=== PATIENT | female | born 1925 | race Caucasian/White ===

== ENCOUNTER 2017-06-03 08:03 | Emergency (ER) | payer MEDICARE, BC ==
--- NOTE | 2017-06-03 08:19 | Emergency Department Record ---
History of Present Illness - General Chief Complaint: Abdominal Pain Stated Complaint: ABD PAIN Time Seen by Provider: 06/03/17 08:17 Source: Patient Mode of Arrival: Ambulatory Limitations: No limitations - History of Present Illness Initial Comments: The patient is here due to a 3 day hx of crampy lower AP associated with nausea and vomiting 3 days ago. She has had no vomiting over the last 2 days associated with intermittent loose stools. The patient states she has a hx of Diverticulitis but it usually is not this bad. She has had her GB removed in the past along with a vaginal Hysterectomy. The patient denies any CP, SOB, MARCELO , fever, or dysuria. She state the pain is in the lower abdomen bilaterally and presently it is mild. MD Complaint: Abdominal pain Onset/Timin -: Days(s) Location: Suprapubic, LLQ, RLQ Severity: Moderate Quality: Sharp, Other Consistency: Intermittent - Related Data Previous Rx's Medication Instructions Recorded Amoxicillin/Potassium Clav 1 tab PO BID #14 tab 06/03/17 [Augmentin 875-125 Tablet] Dicyclomine HCl [Bentyl] 10 mg PO BID #15 cap 06/03/17 Allergies Allergy/AdvReac Type Severity Reaction Status Date / Time No Known Drug Allergies Allergy Verified 03/10/16 12:32 Travel Screening - Travel/Exposure Within Last 30 Days Have you traveled within the last 30 days?: No - Travel/Exposure Within Last Year Have you traveled outside the [place] in the last year?: No - Additonal Travel Details Have you been exposed to anyone with a communicable illness?: No - Travel Symptoms Symptom Screening: None Review of Systems Constitutional: Denies: Chills, Fever Eyes: Denies: Eye discharge ENT: Denies: Congestion Respiratory: Denies: Cough, Dyspnea Past Medical History - SOCIAL HISTORY Smoking Status: Never smoker Alcohol Use: None Drug Use: None - RESPIRATORY Hx Respiratory Disorders: No - CARDIOVASCULAR Hx Cardio Disorders: Yes Hx Edema: Yes (left ankle slight now) Hx Hypertension: Yes (good control) - NEURO Hx Neuro Disorders: Yes Hx Headaches: Yes (seldom migraines) Hx of Migraines: Yes Hx Neuropathy: Yes (feet) Hx Weakness: Yes (right knee sometimes) - GI Hx GI Disorders: Yes Hx Reflux: Yes (Rx Tums) Comment:: constipation - Hx Genitourinary Disorders: Yes Hx Bladder Problem: Yes (urinary incont nat at night-wears Depends) - ENDOCRINE Hx Endocrine Disorders: No Hx Thyroid Disease: Yes - MUSCULOSKELETAL Hx Musculoskeletal Disorders: Yes Hx Arthritis: Yes (hands & low back) Comment:: DDD - PSYCH Hx Psych Problems: No - HEMATOLOGY/ONCOLOGY Hx Hematology/Oncology Disorders: Yes Hx Cancer: Yes (forehead) Family Medical History Any Significant Family History?: No Hx Diabetes: Father Hx Heart Disease: Mother Physical Exam - General General Appearance: Alert, Oriented x3, Cooperative, No acute distress - Head Head exam: Atraumatic, Normocephalic, Normal inspection - Eye Eye exam: Normal appearance, PERRL - Neck Neck exam: Normal inspection, Full ROM. negative: Tenderness - Respiratory Respiratory exam: Normal lung sounds bilaterally. negative: Respiratory distress - Cardiovascular Cardiovascular Exam: Regular rate, Normal rhythm, Normal heart sounds - GI/Abdominal GI/Abdominal exam: Soft, Tenderness (There is mild lower abdominal tenderness bilaterally.). negative: Guarding, Rebound, Rigid - Extremities Extremities exam: Normal inspection, Full ROM, Normal capillary refill. negative: Tenderness - Neurological Neurological exam: Alert. negative: Motor sensory deficit Course Vital Signs 06/03/17 08:04 Temperature 97.7 F Pulse Rate 78 Respiratory 20 Rate Blood Pressure 171/78 Pulse Ox 96 - Reevaluation(s) Reevaluation #1: The patient is doing well at this time. She denies any pain presently and is resting comfortably. 06/03/17 09:12 Reevaluation #2: The patient is doing very well at this time. She is resting comfortably and denies any nausea or AP. On exam her abdomen is very soft and nontender. I did explain her lab and xray results to her and the need for F/U with Dr. Valverde. 06/03/17 11:19 Reevaluation #3: I did discuss the case with Dr. Valverde and he agrees with the plan for discharge and F/U next week. 06/03/17 12:00 Medical Decision Making - Data Complexity MDM Data: Labs Ordered and/or Reviewed, X-Ray Ordered and/or Reviewed - Lab Data Result diagrams: 06/03/17 08:22 06/03/17 08:22 - Radiology Data Radiology results: Report reviewed (Abd CT: Neg obstrucition or Diverticulitis. There is a R inguinal hernia with nonosbructed SB and a L inguinal hernia with fat.) Disposition Disposition: Discharge Clinical Impression: Abdominal pain in female Disposition: Home, Self-Care Condition: (2) Stable Instructions: Abdominal Pain (ED) Additional Instructions: Please take the Augmentin as directed and use Bentyl for cramping. Please see your PCP later this week for recheck. Return to the ER for any increased pain, fever, or vomiting. Prescriptions: Amoxicillin/Potassium Clav [Augmentin 875-125 Tablet] 1 tab PO BID #14 tab Dicyclomine HCl [Bentyl] 10 mg PO BID #15 cap Referrals: [facility] [Provider Group] Forms: Patient Portal Access Time of Disposition: 11:28 Quality - Quality Measures Quality Measures: N/A - Blood Pressure Screening View Details: Yes Does Patient Have Any of the Following: No Blood Pressure Classification: Hypertensive Reading Systolic Measurement: 148 Diastolic Measurement: 58 Screening for High Blood Pressure: < Pre-Hypertensive BP, F/U Documented > [ G8950] Pre-Hypertensive Follow-up Interventions: Referral to alternative/primary care provider.
[2017-06-03] MEDS ORDERED: ONDANSETRON HCL IV 4 MG/2 ML VIAL IV ONE (08:23)
[2017-06-03] MEDS ORDERED: 0.9 % SODIUM CHLORIDE 1,000 ML BAG IV ONE (08:23)
[2017-06-03 08:38] LABS: BASO % 1.1 % (0-6); EOS % 2.8 % (0-6); GRAN % 51.4 % (47-80); HEMOGLOBIN 14.8 gm/dl (11.6-16.0); LYMPH % 37.2 % (16-45); MEAN CELL VOLUME 92.6 fl (81-97); MEAN CORPUSCULAR HEMOGLOBIN 31.2 pg (27-33); MEAN CORPUSCULAR HGB CONC 33.6 g/dl (32-36); MEAN PLATELET VOLUME 9.6 fl (7.4-10.4); MONO % 7.5 % (0-9); PLATELET COUNT 351 K/uL (130-400); RED BLOOD COUNT 4.75 M/uL (3.80-5.40); RED CELL DISTRIBUTION WIDTH 14.7 % (11.5-14.5); WHITE BLOOD COUNT W/O DIFF 5.6 K/uL (4.2-12.2)
[2017-06-03 08:47] LABS: BLOOD UREA NITROGEN 14 mg/dL (8-23)
[2017-06-03 08:48] LABS: CREATININE 0.8 mg/dL (0.5-0.9); EST GLOMERULAR FILTRATION RATE > 60 mL/min; TOTAL PROTEIN 8.1 g/dL (6.6-8.7)
[2017-06-03 08:50] LABS: GLUCOSE,RANDOM 120 mg/dL (74-109)
[2017-06-03 08:53] LABS: ALBUMIN 4.4 g/dL (4.0-5.0); ALKALINE PHOSPHATASE 84 U/L (35-104); ALT/SGPT 16 U/L (<33); AST/SGOT 23 U/L (10.0-35.0); LIPASE 24 U/L (13-60)
[2017-06-03 08:55] LABS: BILIRUBIN,DIRECT < 0.2 mg/dL (0-0.3)
[2017-06-03 09:56] LABS: URINE APPEARANCE CLEAR; URINE BILIRUBIN NEGATIVE (NEGATIVE); URINE BLOOD NEGATIVE (NEGATIVE); URINE COLOR YELLOW; URINE GLUCOSE (UA) NEGATIVE (NEGATIVE); URINE KETONE TRACE (NEGATIVE); URINE LEUKOCYTE ESTERASE NEGATIVE (NEGATIVE); URINE NITRITE NEGATIVE (NEGATIVE); URINE PROTEIN NEGATIVE (NEGATIVE); URINE UROBILINOGEN 0.2 E.U./dL (0.20 - 1.00)
--- NOTE | 2017-06-04 06:00 | CT SCAN REPORT ---
DATE: 06/03/2017 at 10:16 a.m. EXAM: EMERGENCY CT SCAN OF THE ABDOMEN AND PELVIS WITH CONTRAST. HISTORY: Lower abdominal pain for three days. Cholecystectomy and bladder repair. TECHNIQUE: Axial CT scan of the abdomen and pelvis was performed following both oral and intravenous contrast administration utilizing a dose of 100 mL of Omnipaque 300 as the intravenous contrast. COMPARISON: Prior CT of the abdomen and pelvis dated 06/29/2008. Report of the prior CT, however, is not within PAX. FINDINGS: Surgical clips are seen in the gallbladder fossa as before consistent with prior cholecystectomy. Multiple low-attenuation masses are again seen in the liver, also present previously, with the largest located in the medial segment of the left lobe as before measuring about 1.8 cm. These all likely represent multiple small cysts. Numerous calcifications again seen in the spleen consistent with calcified splenic granulomas. There is an approximately 3.5 cm low-attenuation mass anteriorly in the mid portion of the right kidney which has increased in size since the prior study. This has a CT density of 17 and is consistent with a cyst. No definite mass seen in the left kidney, either adrenal or within the pancreas. There is a right inguinal hernia containing some nonobstructed-appearing small bowel. There is also a left inguinal hernia containing adipose tissue but no bowel. The uterus is not identified and is presumably surgically absent. There is a small nodule in the left perineal region which was present previously as well and appears unchanged, measuring about 1.5 cm in diameter as before. There is extensive diverticulosis in the left side of the colon and moderate diverticulosis in the right side of the colon as well. However, no definite diverticulitis is evident. Oral contrast given is passed throughout the small bowel well into the colon with no small bowel obstruction evident. There are segments of the colon, particularly the left side of the colon, that have a somewhat thick-walled appearance. This is nonspecific and follow-up colonoscopy is suggested. No free intraperitoneal air or free intraperitoneal fluid evident. Prominent degenerative change in the facets of the lumbar spine with mild anterior subluxation of L3 on L4 which appears to be on a degenerative basis. Advanced degenerative disc disease at the L4-5 interspace. IMPRESSION: 1. POSTOPERATIVE CHOLECYSTECTOMY AND HYSTERECTOMY. 2. 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 3. AN APPROXIMATELY 3.5 CM RIGHT RENAL CYST. 4. CALCIFIED SPLENIC GRANULOMAS. 5. RIGHT INGUINAL HERNIA CONTAINING NONOBSTRUCTED-APPEARING SMALL BOWEL. LEFT INGUINAL HERNIA CONTAINING ADIPOSE TISSUE WITH NO BOWEL. 6. PROMINENT DIVERTICULOSIS, PARTICULARLY ON THE LEFT SIDE OF THE COLON. SEGMENTS OF THE COLON, PARTICULARLY ON THE LEFT SIDE, HAVE A SOMEWHAT THICK- WALLED APPEARANCE, NONSPECIFIC. FOLLOW-UP COLONOSCOPY SUGGESTED. 7. ADVANCED DEGENERATIVE CHANGES IN THE LUMBAR SPINE. JOB NUMBER: [id number] MTDD
== END 2017-06-03 11:42 | disposition home or self-care (01) ==
LOC: ER 08:03
DX: R10.84 Generalized abdominal pain (principal); K40.20 Bilateral inguinal hernia, without obstruction or gangrene, not specified as recurrent; R11.0 Nausea; R19.7 Diarrhea, unspecified; I10 Essential (primary) hypertension
CPT/HCPCS: 99284 ×2; 96374; 83605; 83690; 85025; 80076; 80048; 81003; 74177; Q9967; J2405; J7030

== ENCOUNTER 2017-08-28 22:56 | Emergency (ER) | payer MEDICARE, BC ==
[2017-08-28 23:35] LABS: BASO % 0.6 % (0-6); EOS % 2.3 % (0-6); GRAN % 65.5 % (47-80); HEMATOCRIT 36.8 % (35.0-47.0); HEMOGLOBIN 11.9 gm/dl (11.6-16.0); MEAN CELL VOLUME 90.6 fl (81-97); MEAN CORPUSCULAR HEMOGLOBIN 29.3 pg (27-33); MEAN CORPUSCULAR HGB CONC 32.3 g/dl (32-36); MEAN PLATELET VOLUME 9.6 fl (7.4-10.4); MONO % 10.6 % (0-9); PLATELET COUNT 456 K/uL (130-400); RED BLOOD COUNT 4.06 M/uL (3.80-5.40); WHITE BLOOD COUNT W/O DIFF 11.5 K/uL (4.2-12.2)
[2017-08-28 23:48] LABS: BLOOD UREA NITROGEN 14 mg/dL (8-23); CREATININE 0.6 mg/dL (0.5-0.9); EST GLOMERULAR FILTRATION RATE > 60 mL/min; GLUCOSE,RANDOM 106 mg/dL (74-109)
[2017-08-29 00:04] LABS: ERYTHROCYTE SEDIMENTATION RATE 83 mm/hr (0-30)
--- NOTE | 2017-08-29 00:27 | Emergency Department Record ---
History of Present Illness - General Chief Complaint: Headache Migraine Stated Complaint: HEADACHE,LT EYE VISION LOSS Time Seen by Provider: 08/28/17 23:16 Source: Patient Mode of Arrival: Ambulatory Limitations: No limitations - History of Present Illness Initial Comments: pt was brought in for sudden onset of sigala and loss of vision in l eye . symptoms are almost resolved. she had a similar episode earlier this week MD Complaint: Headache Onset/Timin -: Hour(s) Onset Description: Sudden, Other Location: Facial, Frontal Severity: Moderate Severity scale (1-10): 6 Quality: Similar to previous headaches Consistency: Constant Improves With: Medication Worsens With: Exertion/activity, Light Associated Symptoms: Photophobia, Vision loss Treatments Prior to Arrival: Acetaminophen Treatment Prior to Arrival Comment:: 500MG ONE HOUR AGO - Related Data Previous Rx's Medication Instructions Recorded Dicyclomine HCl [Bentyl] 10 mg PO BID #15 cap 06/03/17 Allergies Allergy/AdvReac Type Severity Reaction Status Date / Time No Known Drug Allergies Allergy Verified 03/10/16 12:32 Travel Screening - Travel/Exposure Within Last 30 Days Have you traveled within the last 30 days?: No - Travel Symptoms Symptom Screening: Headache Review of Systems Reviewed: No additional complaints except as noted below Constitutional: Reports: As per HPI. Denies: Chills, Fever, Malaise, Night sweats, Weakness, Weight change Eyes: Reports: As per HPI. Denies: Eye discharge, Eye pain, Photophobia, Vision change ENT: Reports: As per HPI. Denies: Congestion, Dental pain, Ear pain, Epistaxis , Hearing loss, Throat pain Respiratory: Reports: As per HPI. Denies: Cough, Dyspnea, Hemoptysis, Stridor, Wheezes Cardiovascular: Reports: As per HPI. Denies: Arrhythmia, Chest pain, Dyspnea on exertion, Edema, Murmurs, Orthopnea, Palpitations, Paroxysmal nocturnal dyspnea, Rheumatic Fever, Syncope Endocrine: Reports: As per HPI. Denies: Fatigue, Heat or cold intolerance, Polydipsia, Polyuria Gastrointestinal: Reports: As per HPI. Denies: Abdominal pain, Constipation, Diarrhea, Hematemesis, Hematochezia, Melena, Nausea, Vomiting Genitourinary: Reports: As per HPI. Denies: Abnormal menses, Discharge, Dyspareunia, Dysuria, Frequency, Hematuria, Incontinence, Retention, Urgency Musculoskeletal: Reports: As per HPI. Denies: Arthralgia, Back pain, Gout, Joint swelling, Myalgia, Neck pain Skin: Reports: As per HPI. Denies: Bruising, Change in color, Change in hair/ nails, Lesions, Pruritus, Rash Neurological: Reports: As per HPI. Denies: Abnormal gait, Confusion, Headache, Numbness, Paresthesias, Seizure, Tingling, Tremors, Vertigo, Weakness Psychiatric: Reports: As per HPI. Denies: Anxiety, Auditory hallucinations, Depression, Homicidal thoughts, Suicidal thoughts, Visual hallucinations Hematological/Lymphatic: Reports: As per HPI. Denies: Anemia, Blood Clots, Easy bleeding, Easy bruising, Swollen glands Past Medical History - SOCIAL HISTORY Smoking Status: Never smoker Alcohol Use: None Drug Use: None - RESPIRATORY Hx Respiratory Disorders: No - CARDIOVASCULAR Hx Cardio Disorders: Yes Hx Edema: No (denies) Hx Hypertension: Yes (good control) - NEURO Hx Neuro Disorders: Yes Hx Headaches: Yes (denies) Hx of Migraines: Yes (very rare any more) Hx Neuropathy: Yes (feet) Hx Weakness: Yes (right knee sometimes) - GI Hx GI Disorders: Yes Hx Abdominal Pain: Yes Hx Diverticulitis: Yes Hx Reflux: Yes (Rx Tums) Hx Wt Loss/Wt Gain: Yes (JUNE 2017) Hx of Polyps: Yes Comment:: constipation - Hx Genitourinary Disorders: Yes Hx Bladder Problem: Yes (urinary incont nat at night-wears Depends) - ENDOCRINE Hx Endocrine Disorders: No - MUSCULOSKELETAL Hx Musculoskeletal Disorders: Yes Hx Arthritis: Yes (hands & low back) Comment:: DDD - PSYCH Hx Psych Problems: No - HEMATOLOGY/ONCOLOGY Hx Hematology/Oncology Disorders: Yes Hx Cancer: Yes (forehead) Family Medical History Any Significant Family History?: Yes Hx Diabetes: Father Hx Heart Disease: Mother Physical Exam - General General Appearance: Alert, Oriented x3, Cooperative, Mild distress - Head Head exam: Normal inspection - Eye Eye exam: Normal appearance, PERRL, EOMI Pupils: Normal accommodation - ENT ENT exam: Normal exam, Mucous membranes moist, Normal external ear exam, Normal orophraynx Ear exam: Normal external inspection. negative: External canal tenderness Nasal Exam: Normal inspection. negative: Discharge, Sinus tenderness Mouth exam: Normal external inspection, Tongue normal Teeth exam: Normal inspection. negative: Dental caries Throat exam: Normal inspection. negative: Tonsillar erythema, Tonsillar exudate - Neck Neck exam: Normal inspection, Full ROM. negative: Tenderness - Respiratory Respiratory exam: Normal lung sounds bilaterally. negative: Respiratory distress - Cardiovascular Cardiovascular Exam: Regular rate, Normal rhythm, Normal heart sounds - GI/Abdominal GI/Abdominal exam: Soft, Normal bowel sounds. negative: Tenderness - Rectal Rectal exam: Deferred - exam: Deferred - Extremities Extremities exam: Normal inspection, Full ROM, Normal capillary refill. negative: Tenderness - Back Back exam: Reports: Normal inspection, Full ROM. Denies: Muscle spasm, Rash noted, Tenderness - Neurological Neurological exam: Alert, CN II-XII intact, Normal gait, Oriented X3 - Psychiatric Psychiatric exam: Normal affect, Normal mood - Skin Skin exam: Dry, Intact, Normal color, Warm Course Vital Signs 08/28/17 23:03 Temperature 98.4 F Pulse Rate [ 61 Pulse Ox Probe] Respiratory 18 Rate Blood Pressure 174/76 [Left Arm] Pulse Ox 96 - Reevaluation(s) Reevaluation #1: 08/29/17 01:36 pts symptoms have resolved Medical Decision Making - Lab Data Result diagrams: 08/28/17 23:00 08/28/17 23:00 Lab Results 08/28/17 08/28/17 Range/Units 23:00 23:00 WBC 11.5 (4.2-12.2) K/uL RBC 4.06 (3.80-5.40) M/uL Hgb 11.9 (11.6-16.0) gm/dl Hct 36.8 (35.0-47.0) % MCV 90.6 (81-97) fl MCH 29.3 (27-33) pg MCHC 32.3 (32-36) g/dl RDW 15.0 H (11.5-14.5) % Plt Count 456 H (130-400) K/uL MPV 9.6 (7.4-10.4) fl Gran % 65.5 (47-80) % Lymphocytes % 21.0 (16-45) % Monocytes % 10.6 H (0-9) % Eosinophils % 2.3 (0-6) % Basophils % 0.6 (0-6) % ESR 83 H (0-30) mm/hr Sodium 135 L (136-145) mmol/L Potassium 4.1 (3.4-4.5) mmol/L Chloride 94 L (98-107) mmol/L Carbon Dioxide 25.0 (22-29) mmol/L Anion Gap 16.0 (7-16) BUN 14 (8-23) mg/dL Creatinine 0.6 (0.5-0.9) mg/dL Estimated GFR > 60 mL/min Random Glucose 106 (74-109) mg/dL Calcium 9.4 (8.8-10.2) mg/dL Disposition Disposition: Transfer Clinical Impression: TIA (transient ischemic attack) Qualifiers: Transient cerebral ischemia type: unspecified Qualified Code(s): G45.9 - Transient cerebral ischemic attack, unspecified Disposition: Acute Care Hospital Transfer Transfer To: [facility] Reason For Transfer: needs neurologist Accepting Physician: dr coon Time Discussed w/Accepting Physician: 01:36 Forms: Patient Portal Access Quality - Quality Measures Quality Measures: N/A - Blood Pressure Screening Does Patient Have Any of the Following: Active Dx of HTN Blood Pressure Classification: Hypertensive Reading Systolic Measurement: 157 Diastolic Measurement: 64 Screening for High Blood Pressure: Patient Exclusion, Hx of HTN [G9744]
[2017-08-29] MEDS ORDERED: ASPIRIN 81 MG CHEWABLE TABLET PO ONE (01:37)
--- NOTE | 2017-08-30 07:22 | CT SCAN REPORT ---
EXAM: CT OF THE HEAD WITHOUT CONTRAST HISTORY: HEADACHE, LEFT GREATER THAN RIGHT. TRANSIENT LEFT VISION LOSS. TECHNIQUE: Routine noncontrast CT examination of the head was obtained. Comparison: CT of the head without contrast dated 05/09/16. FINDINGS: Moderate dilatation of the subarachnoid spaces is redemonstrated as well as mild ventriculomegaly consistent with atrophy. Mild to moderate periventricular and subcortical white matter lucencies are again noted in each cerebral hemisphere, relatively symmetrically distributed, consistent with chronic small vessel ischemia. Benign bilateral basal ganglia calcification is redemonstrated. No new area of abnormally increased or decreased attenuation is noted throughout the brain substance. No new abnormal extraaxial fluid collection is seen. Post cataract surgery changes are noted bilaterally. The orbits as visualized are otherwise unremarkable. IMPRESSION: 1. NO CT EVIDENCE OF ACUTE INTRACRANIAL ABNORMALITY WITHOUT CHANGE IN APPEARANCE OF THE BRAIN SINCE 05/09/16. 2. GENERALIZED ATROPHY WITH MILD VENTRICULOMEGALY REDEMONSTRATED. 3. WHITE MATTER LUCENCIES AGAIN NOTED IN EACH CEREBRAL HEMISPHERE CONSISTENT WITH CHRONIC SMALL VESSEL ISCHEMIA. JOB NUMBER: [id number] [facility]
== END 2017-08-29 02:14 | disposition short-term general hospital (02) ==
LOC: ER 22:56
DX: G45.9 Transient cerebral ischemic attack, unspecified (principal); H54.62 Unqualified visual loss, left eye, normal vision right eye; R51 Headache; I10 Essential (primary) hypertension
CPT/HCPCS: 70450; 80048; 85025; 85651; 93005; 93010; 99285